=== PATIENT | male | born 1935 | race Caucasian/White ===

== ENCOUNTER 2016-11-23 02:47 | Observation (INO) | payer MEDICARE, BC ==
[~2016-11-23] VITALS: Ht 182.9 cm; Wt 62.1 kg
[2016-11-23] MEDS ORDERED: BISACODYL 10 MG SUPP RECTAL PRN (04:10)
[2016-11-23] MEDS ORDERED: MAG HYDROX 30 ML UDC PO PRN (04:10)
[2016-11-23] MEDS ORDERED: BISACODYL EC 5 MG TAB PO PRN (04:10)
[2016-11-23] MEDS ORDERED: SALINE FLUSH 10 ML FLUSH PRN (04:10)
[2016-11-23] MEDS ORDERED: ALU/MAG/SIM 30 ML UDC PO PRN (04:10)
[2016-11-23] MEDS ORDERED: ACETAMINOPHEN 325 MG TAB PO PRN (04:10)
[2016-11-23 06:42] VITALS: BP_SYST 134; BP_SYST 152; RESP 16; TEMP 96.4
[2016-11-23 06:44] VITALS: Ht 182.9 cm; Wt 62.1 kg
[2016-11-23] MEDS: SODIUM CHLORIDE 0.9% FLUSH BAG 500 ML IV SCH (07:16)
[2016-11-23] MEDS: SALINE FLUSH 10 ML FLUSH SCH ×2 (08:32→20:58)
[2016-11-23] MEDS: ENOXAPARIN 30 MG/0.3 ML SYR SUBQ SCH (08:33)
[2016-11-23 08:53] VITALS: BP_SYST 98; RESP 16; TEMP 97.7
[2016-11-23] MEDS: PANTOPRAZOLE 40 MG TAB PO SCH ×2 (11:20→16:35)
[2016-11-23] MEDS: CHOLECALCIFEROL 1,000 UNITS TAB PO SCH (11:26)
[2016-11-23 11:50] VITALS: BP_SYST 118; RESP 16; TEMP 97.3
[2016-11-23 11:54] VITALS: RESP 18
[2016-11-23] MEDS ORDERED: LEXISCAN 0.4 MG/5 ML SYRINGE IV ONE (14:09)
[2016-11-23] MEDS: GABAPENTIN 100 MG CAP PO SCH ×3 (16:17→20:57)
[2016-11-23] MEDS: TRIMETH/SULFAMETH 160/800 TAB PO SCH (18:11)
[2016-11-23 19:34] VITALS: BP_SYST 128; RESP 20; TEMP 98.5
[2016-11-23 23:29] VITALS: BP_SYST 132; RESP 18; TEMP 97.9
[2016-11-24 04:01] VITALS: BP_SYST 130; RESP 16; TEMP 97.5
[2016-11-24] MEDS: SODIUM CHLORIDE 0.9% FLUSH BAG 500 ML IV SCH (04:21)
[2016-11-24 07:41] VITALS: BP_SYST 132; RESP 18; TEMP 98.6
[2016-11-24] MEDS ORDERED: MISSING DOSE XX ONE (08:05)
[2016-11-24] MEDS: GABAPENTIN 100 MG CAP PO SCH (08:38)
[2016-11-24] MEDS: TRIMETH/SULFAMETH 160/800 TAB PO SCH (08:39)
[2016-11-24] MEDS: CHOLECALCIFEROL 1,000 UNITS TAB PO SCH (08:39)
[2016-11-24] MEDS: PANTOPRAZOLE 40 MG TAB PO SCH (08:39)
[2016-11-24] MEDS: ENOXAPARIN 30 MG/0.3 ML SYR SUBQ SCH (08:40)
[2016-11-24] MEDS: SALINE FLUSH 10 ML FLUSH SCH (08:41)
[2016-11-24 09:58] VITALS: BP_SYST 132; RESP 18; TEMP 98.6
== END 2016-11-24 08:48 | disposition home or self-care (01) ==
LOC: ENRESERVDT → ENRESERVTM → ER 02:47 → ENPENDDIS 04:09 → EMR 04:09 → 4THE 06:02
PROVIDERS: ADMIT Internal Medicine; ATTEND Internal Medicine
DX: R10.13 Epigastric pain (principal); I10 Essential (primary) hypertension; D72.829 Elevated white blood cell count, unspecified; N39.0 Urinary tract infection, site not specified; K59.00 Constipation, unspecified; Z86.73 Personal history of transient ischemic attack (TIA), and cerebral infarction without residual deficits; Z79.899 Other long term (current) drug therapy
CPT/HCPCS: 36415; 71010; 78452; 80048; 80053; 81001; 82550; 82553; 82607; 83735; 84484; 85025; 85610; 85730; 87088; 93005; 93017; 97799; 99285; A9500; G0378; J2785; 94799; 99220; 99238